=== PATIENT | male | born 1960 | race Caucasian/White ===

== ENCOUNTER 2016-08-18 10:59 | Day surgery (SDC) | payer BC ==
--- NOTE | ~2016-08-18 | EGD ---
EGD REPORT [facility] [address] [place] [address] NAME: SHAWN LEI : 56 STATUS : REG [facility] [place] PAT#: [id number] AGE: 55 ADM/REG DATE : 08/18/16 MR#: [id number] REPORT SERV DATE: 08/18/16 DICTATED BY: MELISSA ANDREWS DATE: 08/18/16 REPORT STATUS : Draft TRANSCRIBED BY: [facility] DATE: 08/18/16 Endoscopy Center Patient Name: Shawn Lei Date of : 1960 Attending MD: MELISSA ANDREWS MD Procedure Date No Time: 08/18/2016 Procedure: Colonoscopy Indications: Screening for colorectal malignant neoplasm, Last colonoscopy remote past Medicines: See the Anesthesia note for documentation of the administered medications Complications: No immediate complications. Procedure: Pre-Anesthesia Assessment: - ASA Grade Assessment: III - A patient with severe systemic disease. After I obtained informed consent, the scope was passed under direct vision. Throughout the procedure, the patient's blood pressure, pulse, and oxygen saturations were monitored continuously. The PCF H190L [id number] was introduced through the anus and advanced to the cecum, identified by appendiceal orifice and ileocecal valve. The colonoscopy was performed without difficulty. The patient tolerated the procedure well. The quality of the bowel preparation was adequate. Findings: The perianal and digital rectal examinations were normal. Internal hemorrhoids were found during retroflexion and were small. Decreased colon tone with melanosis coli A sessile polyp was found in the rectum. The polyp was small in size. The polyp was removed with a cold biopsy forceps. Resection and retrieval were complete. A sessile polyp was found in the rectum. The polyp was 10 mm in size. The polyp was removed with a hot snare. Resection and retrieval were complete. Impression: - Internal hemorrhoids. - Decreased colon tone with melanosis coli - One small polyp in the rectum. Resected and retrieved. - One 10 mm polyp in the rectum. Resected and retrieved. Recommendation: - Patient has a contact number available for emergencies. The signs and symptoms of potential delayed complications were discussed with the patient. Return to normal activities tomorrow. Written discharge EGD REPORT [address] [place]. [address] NAME: SHAWN LEI : [birth year] STATUS : [place] [facility] [place] PAT#: [id number] AGE: 55 ADM/REG DATE : 08/18/16 MR#: [id number] REPORT SERV DATE: 08/18/16 DICTATED BY: MELISSA ANDREWS DATE: 08/18/16 REPORT STATUS : Draft TRANSCRIBED BY: [employer] DATE: 08/18/16 instructions were provided to the patient. - Regular diet. - Repeat colonoscopy for surveillance based on pathology results. - Return to my office in 6 weeks. Procedure Code(s): --- Professional --- 17883, Colonoscopy, flexible, proximal to splenic flexure; with removal of tumor(s), polyp(s), or other lesion(s) by snare technique 67254, 59, Colonoscopy, flexible, proximal to splenic flexure; with biopsy, single or multiple Diagnosis Code(s): --- Professional --- K64.8, Other hemorrhoids K62.1, Rectal polyp Z12.11, Encounter for screening for malignant neoplasm of colon CPT copyright 2013 [employer]. All rights reserved. The codes documented in this report are preliminary and upon icd 9 coder review may be revised to meet current compliance requirements. Melissa Andrews MD MELISSA ANDREWS MD 08/18/2016 1:39 PM This report has been signed electronically. Number of Addenda: 0 Note Initiated On: 08/18/2016 12:48 PM Scope Withdrawal Time 0 hours 17 minutes 33 seconds [id number] [place] [id number]
--- NOTE | ~2016-08-18 | EGD ---
EGD REPORT [facility] [address] [place] [place]. [address] NAME: SHAWN LEI : [birth year] STATUS : REG [facility]#: [id number] AGE: 55 ADM/REG DATE : 08/18/16 MR#: [id number] REPORT SERV DATE: 08/18/16 DICTATED BY: MELISSA ANDREWS DATE: 08/18/16 REPORT STATUS : Draft [facility]: [facility] DATE: 08/18/16 Endoscopy Center Patient Name: Shawn Lei Date of : 1960 Attending MD: MELISSA ANDREWS MD Procedure Date No Time: 08/18/2016 Procedure: Upper GI endoscopy Indications: Anemia Medicines: See the Anesthesia note for documentation of the administered medications Complications: No immediate complications. Procedure: Pre-Anesthesia Assessment: - ASA Grade Assessment: III - A patient with severe systemic disease. After obtaining informed consent, the endoscope was passed under direct vision. Throughout the procedure, the patient's blood pressure, pulse, and oxygen saturations were monitored continuously. The GIF H190 [id number] was introduced through the mouth, and advanced to the jejunum. The upper GI endoscopy was accomplished without difficulty. The patient tolerated the procedure well. Findings: The examined jejunum was normal. Biopsies were taken with a cold forceps for histology. There were esophageal mucosal changes suspicious for short-segment Gonzalez's esophagus present in the lower third of the esophagus. The maximum longitudinal extent of these mucosal changes was 1 cm in length. Biopsies were taken with a cold forceps for histology. 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 Biopsied. - Esophageal mucosal changes suspicious for short-segment Gonzalez's esophagus. Biopsied. 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 The signs and symptoms of potential delayed complications were discussed with the patient. Return to normal activities tomorrow. Written discharge instructions were provided to the patient. - Regular diet. - Continue present medications. - FOR YOUR BIOPSY RESULTS: Please go to EGD REPORT [address] [address] NAME: SHAWN LEI : [birth year] STATUS : REG [facility]#: [id number] AGE: 55 ADM/REG DATE : 08/18/16 MR#: [id number] REPORT SERV DATE: 08/18/16 DICTATED BY: MELISSA ANDREWS DATE: 08/18/16 REPORT STATUS : Draft TRANSCRIBED BY: [employer] DATE: 08/18/16 [email or web address] and register to receive your results via the portal. Your biopsy results will be posted there in about 7 to 10 days. IF you do not see result in 10 days, call office. Procedure Code(s): --- Professional --- 84731, Esophagogastroduodenoscopy, flexible, transoral; with biopsy, single or multiple Diagnosis Code(s): --- Professional --- K22.9, Disease of esophagus, unspecified D64.9, Anemia, unspecified CPT copyright 2013 [employer]. All rights reserved. The codes documented in this report are preliminary and upon organizational research consultant review may be revised to meet current compliance requirements. Melissa Andrews MD MELISSA ANDREWS MD 08/18/2016 1:13 PM This report has been signed electronically. Number of Addenda: 0 Note Initiated On: 08/18/2016 1:02 PM Scope Withdrawal Time 0 hours 0 minutes 0 seconds [id number] [place] [id number]
[~2016-08-18 10:59] MED LIST: ACET500CAP PO; B121000P IM; CLARIT10 PO; CYTOTEC2 PO; FLEX PO; FLONASE NAS; GLUCCHONDR PO; METHOC750B PO; POTASSIUM; PRIN20 PO; PROTONIX PO; SINGULAIR1 PO; SUDAFED 12HR120 MG PO; SYN075 PO; TRAZ100 PO; VITAMIN B-121000 MC1; VOLT75 PO; WELLXL300 PO
== END 2016-08-18 23:59 | disposition home or self-care (01) ==
LOC: DMU 10:59
PROVIDERS: Internal Medicine Gastroenterology
PROC: 0DBP8ZZ Excision of Rectum, Via Natural or Artificial Opening Endoscopic (ICD-10-PCS; 2016-08-18)
PROC: 0DBP8ZZ Excision of Rectum, Via Natural or Artificial Opening Endoscopic (ICD-10-PCS; 2016-08-18)
PROC: 0DBA8ZX Excision of Jejunum, Via Natural or Artificial Opening Endoscopic, Diagnostic (ICD-10-PCS; principal; 2016-08-18 13:00)
PROC: 0DB38ZX Excision of Lower Esophagus, Via Natural or Artificial Opening Endoscopic, Diagnostic (ICD-10-PCS; 2016-08-18 13:00)
DX: Z12.11 Encounter for screening for malignant neoplasm of colon (principal); K64.8 Other hemorrhoids; K62.1 Rectal polyp; D12.8 Benign neoplasm of rectum; J45.909 Unspecified asthma, uncomplicated; E66.01 Morbid (severe) obesity due to excess calories; Z68.41 Body mass index [BMI] 40.0-44.9, adult; G89.29 Other chronic pain; M54.9 Dorsalgia, unspecified; Z87.19 Personal history of other diseases of the digestive system; E03.9 Hypothyroidism, unspecified; F41.9 Anxiety disorder, unspecified; Z98.1 Arthrodesis status; F32.9 Major depressive disorder, single episode, unspecified; Z98.890 Other specified postprocedural states; Z79.1 Long term (current) use of non-steroidal anti-inflammatories (NSAID); Z79.51 Long term (current) use of inhaled steroids; Z90.49 Acquired absence of other specified parts of digestive tract; Z79.899 Other long term (current) drug therapy
CPT/HCPCS: 88305